=== PATIENT | female | born 1975 ===

== ENCOUNTER 2021-01-30 17:46 | Inpatient (IN) | payer MEDICARE, MEDICAID ==
[~2021-01-30] VITALS: Ht 162.6 cm; Wt 82.0 kg
[2021-01-30] MEDS ORDERED: SODIUM CHLORIDE 0.9% 500 ML IV ONE (18:00)
[2021-01-30] MEDS ORDERED: ADENOSINE 6 MG/2 ML INJ IV ONE (18:15)
[2021-01-30 18:25] LABS: Basophils % (auto) 0.4 % (0.0-2.0); Eosinophils # (auto) 0.1 10 ^3/uL (0-0.8); Mean Corpuscular Hgb Conc. 30.6 g/dL (32.0-36.0)
[2021-01-30 18:26] LABS: Basophils # (auto) 0 10 ^3/uL (0-0.2); Eosinophils % (auto) 0.9 % (0.0-7.0); Hematocrit 30.4 % (36.0-46.0); Hemoglobin 9.3 g/dL (12.2-16.2); Lymphocytes # (auto) 0.7 10 ^3/uL (0.4-5.4); Lymphocytes % (auto) 5.8 % (10.0-50.0); Mean Corpuscular Volume 81.7 fL (80.0-100.0); Monocytes % (auto) 7.9 % (0.0-12.0); Neutrophils # (auto) 10.7 10 ^3/uL (1.6-8.6); Red Blood Cells 3.72 10^6/uL (4.0-5.20); White Blood Cell 12.6 10^3/uL (4.4-10.8)
[2021-01-30 18:50] LABS: Albumin 1.8 g/dL (3.4-5.0); Calcium 8.7 mg/dL (8.5-10.1); Magnesium 1.9 mg/dL (1.6-2.6); Potassium 3.9 mmol/L (3.5-5.1)
[2021-01-30 18:58] LABS: BUN/Creatinine Ratio 19.7; Bilirubin, Total 0.5 mg/dL (0.2-1.0); Total Protein 7.2 g/dL (6.4-8.2)
[2021-01-31] MEDS ORDERED: ASPirin 81 mg TAB PO ONE (06:15)
[2021-01-31] MEDS ORDERED: NITROGLYCERIN 0.4 MG SL TAB SL PRN (09:00)
[2021-01-31] MEDS ORDERED: ACETAMINOPHEN 500 MG TAB PO PRN (09:00)
[2021-01-31] MEDS: cefTRIAXone 1GM/50ML D5W 50 ML IV SCH (09:00)
[2021-01-31] MEDS ORDERED: ONDANSETRON HCL 4 MG/2 ML VIAL IV PRN (09:00)
[2021-01-31] MEDS: BUDESONIDE (INHALATION) 0.5 MG/2 ML NEB NEB SCH ×2 (09:50→19:45)
[2021-01-31] MEDS: azaTHIOprine 50 MG TAB PO SCH (10:00)
[2021-01-31] MEDS: dilTIAZem 120MG ER CAP PO SCH (10:21)
[2021-01-31] MEDS: AZITHROMYCIN 500MG/ 250ML 250 ML IV SCH (10:21)
[2021-01-31] MEDS: IPRATROPIUM BROM 0.5 MG/2.5ML INH SOL NEB SCH ×2 (12:00→19:45)
[2021-01-31] MEDS: LEVALBUTEROL HCL 1.25 MG/3 ML NEB NEB SCH ×2 (12:00→19:45)
[2021-01-31 14:38] VITALS: BP 119/78
[2021-01-31 22:35] VITALS: BP 118/66
[2021-02-01] MEDS: guaiFENesin-CODEINE Liq 5 ML UD PO PRN ×2 (00:02→10:05)
[2021-02-01 05:00] VITALS: BP 104/53
[2021-02-01 06:37] LABS: Basophils # (auto) 0.1 10 ^3/uL (0-0.2); Basophils % (auto) 1.1 % (0.0-2.0); Eosinophils # (auto) 0.4 10 ^3/uL (0-0.8); Eosinophils % (auto) 5.8 % (0.0-7.0); Hematocrit 23.5 % (36.0-46.0); Hemoglobin 7.5 g/dL (12.2-16.2); Lymphocytes # (auto) 0.5 10 ^3/uL (0.4-5.4); Lymphocytes % (auto) 7.5 % (10.0-50.0); Mean Corpuscular Hemoglobin 25.5 pg (28.0-32.0); Mean Corpuscular Hgb Conc. 31.9 g/dL (32.0-36.0); Mean Corpuscular Volume 80.2 fL (80.0-100.0); Monocytes # (auto) 0.9 10 ^3/uL (0-1.3); Monocytes % (auto) 11.8 % (0.0-12.0); Neutrophils # (auto) 5.4 10 ^3/uL (1.6-8.6); Neutrophils % (auto) 73.8 % (37.0-80.0); Nucleated Red Blood Cells % 0.2 %; Red Blood Cells 2.94 10^6/uL (4.0-5.20); White Blood Cell 7.3 10^3/uL (4.4-10.8)
[2021-02-01 06:41] LABS: Calcium 8.3 mg/dL (8.5-10.1); Potassium 3.6 mmol/L (3.5-5.1)
[2021-02-01 06:49] LABS: Red Cell Distribution Width 20.2 % (11.8-14.3)
[2021-02-01 07:05] LABS: Urine Bacteria NONE SEEN /hpf (None Seen); Urine Blood Negative /uL (Negative); Urine Mucus FEW (None Seen); Urine Specific Gravity 1.023 (1.001-1.035); Urine WBC 20 /hpf (0 - 5)
[2021-02-01] MEDS ORDERED: PRED20TA2 PO (08:49)
[2021-02-01] MEDS ORDERED: GABA300C10 PO (08:49)
[2021-02-01] MEDS ORDERED: ALBUAER3 IN (08:49)
[2021-02-01] MEDS: LEVALBUTEROL HCL 1.25 MG/3 ML NEB NEB SCH ×3 (08:51→18:29)
[2021-02-01] MEDS: IPRATROPIUM BROM 0.5 MG/2.5ML INH SOL NEB SCH ×3 (08:51→18:28)
[2021-02-01] MEDS: BUDESONIDE (INHALATION) 0.5 MG/2 ML NEB NEB SCH ×2 (08:52→18:29)
[2021-02-01 09:00] VITALS: BP 116/68
[2021-02-01] MEDS: cefTRIAXone 1GM/50ML D5W 50 ML IV SCH (09:57)
[2021-02-01] MEDS: dilTIAZem 120MG ER CAP PO SCH (09:59)
[2021-02-01] MEDS: azaTHIOprine 50 MG TAB PO SCH (10:00)
[2021-02-01] MEDS: HYDROcodone-ACET 5/325MG TAB PO PRN (10:01)
[2021-02-01] MEDS: AZITHROMYCIN 500MG/ 250ML 250 ML IV SCH (10:30)
[2021-02-01 12:27] LABS: Hemoglobin 8.5 g/dL (12.2-16.2)
[2021-02-01 12:31] LABS: Hematocrit 26.9 % (36.0-46.0)
[2021-02-01 13:00] VITALS: BP 116/71
[2021-02-01] MEDS ORDERED: METOPROLOL TARTRATE 25 MG TAB PO ONE (13:00)
[2021-02-01] MEDS ORDERED: SODIUM CHLORIDE 0.9% 500 ML IV ONE (13:00)
[2021-02-01] MEDS ORDERED: MAGNESIUM SULFATE 1GM/100ML 100 ML IV ONE (13:00)
[2021-02-01] MEDS ORDERED: POTASSIUM CHL 20 Meq TABLET PO ONE (13:00)
[2021-02-01 13:57] LABS: Cholesterol 139 mg/dL (< 200); HDL Cholesterol 26 mg/dL (40-59); LDL Cholesterol 9 mg/dL (< 100); Triglycerides 75 mg/dL (< 150)
[2021-02-01 17:00] VITALS: BP 106/53
[2021-02-01] MEDS ORDERED: AZAT50TA6 PO (18:34)
[2021-02-01] MEDS ORDERED: METO25TA5 PO (18:34)
[2021-02-01] MEDS ORDERED: LISI-716 PO (18:34)
[2021-02-01] MEDS ORDERED: FER325T PO (18:34)
[2021-02-01 22:00] VITALS: BP 103/58
[2021-02-01] MEDS: METOPROLOL TARTRATE 25 MG TAB PO SCH (23:00)
[2021-02-02 05:00] VITALS: BP 106/65
[2021-02-02] MEDS: LEVALBUTEROL HCL 1.25 MG/3 ML NEB NEB SCH ×3 (07:31→19:21)
[2021-02-02] MEDS: BUDESONIDE (INHALATION) 0.5 MG/2 ML NEB NEB SCH ×2 (07:31→19:25)
[2021-02-02] MEDS: IPRATROPIUM BROM 0.5 MG/2.5ML INH SOL NEB SCH ×3 (07:32→19:21)
[2021-02-02 07:40] LABS: Basophils # (auto) 0.1 10 ^3/uL (0-0.2); Eosinophils # (auto) 0.5 10 ^3/uL (0-0.8); White Blood Cell 10.7 10^3/uL (4.4-10.8)
[2021-02-02 07:42] LABS: Basophils % (auto) 0.7 % (0.0-2.0); Eosinophils % (auto) 4.7 % (0.0-7.0); Hematocrit 25.7 % (36.0-46.0); Hemoglobin 8.1 g/dL (12.2-16.2); Lymphocytes # (auto) 0.9 10 ^3/uL (0.4-5.4); Lymphocytes % (auto) 8.7 % (10.0-50.0); Mean Corpuscular Hemoglobin 25.4 pg (28.0-32.0); Mean Corpuscular Hgb Conc. 31.7 g/dL (32.0-36.0); Mean Corpuscular Volume 80.2 fL (80.0-100.0); Monocytes # (auto) 1.2 10 ^3/uL (0-1.3); Monocytes % (auto) 11.1 % (0.0-12.0); Neutrophils % (auto) 74.8 % (37.0-80.0); Nucleated Red Blood Cells % 0.1 %
[2021-02-02 07:50] LABS: Red Cell Distribution Width 20.1 % (11.8-14.3)
[2021-02-02 07:57] LABS: Potassium 4.4 mmol/L (3.5-5.1)
[2021-02-02 07:58] LABS: BUN/Creatinine Ratio 11.7; Calcium 8.6 mg/dL (8.5-10.1)
[2021-02-02 08:46] VITALS: BP 126/76
[2021-02-02] MEDS: azaTHIOprine 50 MG TAB PO SCH (09:07)
[2021-02-02] MEDS: cefTRIAXone 1GM/50ML D5W 50 ML IV SCH (09:07)
[2021-02-02] MEDS: METOPROLOL TARTRATE 25 MG TAB PO SCH (09:08)
[2021-02-02] MEDS: HYDROcodone-ACET 5/325MG TAB PO PRN ×2 (09:11→20:30)
[2021-02-02] MEDS: AZITHROMYCIN 500MG/ 250ML 250 ML IV SCH (10:00)
[2021-02-02] MEDS ORDERED: PIPERACILLIN-TAZOB 3.375GM 100 ML IV ONE (11:15)
[2021-02-02] MEDS ORDERED: GABAPENTIN 300 MG CAP PO ONE (11:15)
[2021-02-02] MEDS: hydroxyUREA 500 MG CAP PO SCH (12:28)
[2021-02-02 12:46] VITALS: BP 107/74
[2021-02-02] MEDS ORDERED: DIGOXIN (250MCG/ML) 2 ML AMPULE IV ONE (15:15)
[2021-02-02 16:46] VITALS: BP 115/83
[2021-02-02] MEDS: PIPERACILLIN-TAZOB 3.375GM 100 ML IV SCH (18:23)
[2021-02-02] MEDS: GABAPENTIN 300 MG CAP PO SCH (21:47)
[2021-02-02 22:00] VITALS: BP 110/70
[2021-02-03 05:00] VITALS: BP 125/64
[2021-02-03] MEDS: GABAPENTIN 300 MG CAP PO SCH ×3 (05:45→21:59)
[2021-02-03] MEDS: PIPERACILLIN-TAZOB 3.375GM 100 ML IV SCH ×3 (05:45→21:59)
[2021-02-03] MEDS: LEVALBUTEROL HCL 1.25 MG/3 ML NEB NEB SCH ×3 (06:26→18:07)
[2021-02-03] MEDS: IPRATROPIUM BROM 0.5 MG/2.5ML INH SOL NEB SCH ×3 (06:27→18:07)
[2021-02-03] MEDS: BUDESONIDE (INHALATION) 0.5 MG/2 ML NEB NEB SCH ×2 (06:27→18:07)
[2021-02-03 06:48] LABS: BUN/Creatinine Ratio 11.3; Calcium 8.8 mg/dL (8.5-10.1); Potassium 3.9 mmol/L (3.5-5.1)
[2021-02-03 06:49] LABS: Basophils # (auto) 0.1 10 ^3/uL (0-0.2); Basophils % (auto) 0.9 % (0.0-2.0); Eosinophils # (auto) 0.5 10 ^3/uL (0-0.8); Eosinophils % (auto) 4.7 % (0.0-7.0); Hematocrit 25.8 % (36.0-46.0); Lymphocytes # (auto) 0.5 10 ^3/uL (0.4-5.4); Lymphocytes % (auto) 4.3 % (10.0-50.0); Mean Corpuscular Hemoglobin 24.7 pg (28.0-32.0); Mean Corpuscular Hgb Conc. 30.9 g/dL (32.0-36.0); Mean Corpuscular Volume 79.8 fL (80.0-100.0); Monocytes # (auto) 0.7 10 ^3/uL (0-1.3); Monocytes % (auto) 6.2 % (0.0-12.0); Neutrophils # (auto) 9.6 10 ^3/uL (1.6-8.6); Neutrophils % (auto) 83.9 % (37.0-80.0); Nucleated Red Blood Cells % 0.1 %; Red Blood Cells 3.24 10^6/uL (4.0-5.20); White Blood Cell 11.4 10^3/uL (4.4-10.8)
[2021-02-03 06:51] LABS: Red Cell Distribution Width 20.2 % (11.8-14.3)
[2021-02-03 06:52] LABS: % Iron Saturation 3.4 % (15-50)
[2021-02-03 07:17] LABS: Ferritin 207.8 ng/mL (10-322)
[2021-02-03 08:50] VITALS: BP 119/66
[2021-02-03 09:00] VITALS: BP 118/71
[2021-02-03] MEDS ORDERED: POTASSIUM CHL 20 Meq TABLET PO ONE (10:15)
[2021-02-03] MEDS ORDERED: FUROSEMIDE 20 MG/2 ML VIAL IV ONE (10:15)
[2021-02-03] MEDS: azaTHIOprine 50 MG TAB PO SCH (10:35)
[2021-02-03] MEDS: DIGOXIN 0.125 MG TAB PO SCH (10:36)
[2021-02-03] MEDS: hydroxyUREA 500 MG CAP PO SCH (10:36)
[2021-02-03 13:00] VITALS: BP 116/89
[2021-02-03 17:00] VITALS: BP 108/69
[2021-02-03 22:00] VITALS: BP 109/67
[2021-02-03] MEDS: HYDROcodone-ACET 5/325MG TAB PO PRN (22:19)
[2021-02-04 05:00] VITALS: BP 117/65
[2021-02-04] MEDS: GABAPENTIN 300 MG CAP PO SCH ×3 (06:17→22:36)
[2021-02-04] MEDS: PIPERACILLIN-TAZOB 3.375GM 100 ML IV SCH ×3 (06:17→22:36)
[2021-02-04] MEDS: BUDESONIDE (INHALATION) 0.5 MG/2 ML NEB NEB SCH ×2 (06:38→17:55)
[2021-02-04] MEDS: LEVALBUTEROL HCL 1.25 MG/3 ML NEB NEB SCH ×3 (06:38→17:54)
[2021-02-04] MEDS: IPRATROPIUM BROM 0.5 MG/2.5ML INH SOL NEB SCH ×3 (06:38→17:55)
[2021-02-04 07:09] LABS: Potassium 4.8 mmol/L (3.5-5.1)
[2021-02-04 07:16] LABS: BUN/Creatinine Ratio 9.9; Calcium 8.7 mg/dL (8.5-10.1)
[2021-02-04 07:22] LABS: Basophils # (auto) 0.1 10 ^3/uL (0-0.2)
[2021-02-04 07:25] LABS: Basophils % (auto) 0.5 % (0.0-2.0); Eosinophils # (auto) 0.7 10 ^3/uL (0-0.8); Eosinophils % (auto) 4.7 % (0.0-7.0); Hematocrit 25.4 % (36.0-46.0); Lymphocytes # (auto) 0.7 10 ^3/uL (0.4-5.4); Mean Corpuscular Hemoglobin 24.9 pg (28.0-32.0); Mean Corpuscular Hgb Conc. 31.5 g/dL (32.0-36.0); Mean Corpuscular Volume 78.9 fL (80.0-100.0); Monocytes # (auto) 1.2 10 ^3/uL (0-1.3); Monocytes % (auto) 8.6 % (0.0-12.0); Neutrophils # (auto) 11.3 10 ^3/uL (1.6-8.6); Neutrophils % (auto) 81.2 % (37.0-80.0); Red Blood Cells 3.22 10^6/uL (4.0-5.20); Red Cell Distribution Width 19.9 % (11.8-14.3); White Blood Cell 13.9 10^3/uL (4.4-10.8)
[2021-02-04 09:00] VITALS: BP 113/72
[2021-02-04] MEDS: azaTHIOprine 50 MG TAB PO SCH (09:48)
[2021-02-04] MEDS: hydroxyUREA 500 MG CAP PO SCH (09:48)
[2021-02-04] MEDS: DIGOXIN 0.125 MG TAB PO SCH (09:49)
[2021-02-04 13:00] VITALS: BP 121/74
[2021-02-04] MEDS: SODIUM FERR GLUC 62.5MG/5ML 125 MG in SODIUM CHL 0.9% 100 ML IV SCH (14:15)
[2021-02-04 16:46] VITALS: BP 106/51
[2021-02-04 22:00] VITALS: BP 87/51
[2021-02-04] MEDS ORDERED: IPRATROPIUM BROM 0.5 MG/2.5ML INH SOL NEB SCH (22:00)
[2021-02-05] VITALS (28 sets, daily range): BP systolic 96–132; BP diastolic 61–83
[2021-02-05 05:37] LABS: Basophils # (auto) 0.1 10 ^3/uL (0-0.2); Eosinophils # (auto) 0.1 10 ^3/uL (0-0.8); Neutrophils % (auto) 73.4 % (37.0-80.0)
[2021-02-05 05:40] LABS: Basophils % (auto) 0.8 % (0.0-2.0); Eosinophils % (auto) 1.4 % (0.0-7.0); Hematocrit 23.2 % (36.0-46.0); Hemoglobin 7.3 g/dL (12.2-16.2); Lymphocytes # (auto) 1.2 10 ^3/uL (0.4-5.4); Lymphocytes % (auto) 15.9 % (10.0-50.0); Mean Corpuscular Hgb Conc. 31.3 g/dL (32.0-36.0); Mean Corpuscular Volume 79.9 fL (80.0-100.0); Monocytes # (auto) 0.6 10 ^3/uL (0-1.3); Monocytes % (auto) 8.5 % (0.0-12.0); Neutrophils # (auto) 5.5 10 ^3/uL (1.6-8.6); Nucleated Red Blood Cells % 0.1 %; White Blood Cell 7.4 10^3/uL (4.4-10.8)
[2021-02-05 05:57] LABS: Potassium 4.3 mmol/L (3.5-5.1)
[2021-02-05] MEDS: BUDESONIDE (INHALATION) 0.5 MG/2 ML NEB NEB SCH ×2 (05:57→18:24)
[2021-02-05] MEDS: IPRATROPIUM BROM 0.5 MG/2.5ML INH SOL NEB SCH ×3 (05:58→18:24)
[2021-02-05] MEDS: LEVALBUTEROL HCL 1.25 MG/3 ML NEB NEB SCH ×3 (05:58→18:24)
[2021-02-05] MEDS: GABAPENTIN 300 MG CAP PO SCH ×3 (06:00→20:41)
[2021-02-05] MEDS: PIPERACILLIN-TAZOB 3.375GM 100 ML IV SCH ×3 (06:00→22:00)
[2021-02-05 06:02] LABS: INR 1.73 (0.9-1.15); Partial Thromboplastin Time 36.3 sec (23.6-33.0)
[2021-02-05 06:10] LABS: Albumin 1.5 g/dL (3.4-5.0); BUN/Creatinine Ratio 14.8; Bilirubin, Total 0.4 mg/dL (0.2-1.0); Calcium 8.2 mg/dL (8.5-10.1); Magnesium 2.3 mg/dL (1.6-2.6); Phosphorus 3.8 mg/dL (2.5-4.90); Total Protein 6.6 g/dL (6.4-8.2)
[2021-02-05] MEDS: azaTHIOprine 50 MG TAB PO SCH (10:00)
[2021-02-05] MEDS: DIGOXIN 0.125 MG TAB PO SCH (10:00)
[2021-02-05] MEDS: hydroxyUREA 500 MG CAP PO SCH (10:00)
[2021-02-05] MEDS ORDERED: POTASSIUM CHLORIDE 20 MEQ, LIDOCAINE 1% (LOCAL ANESTH.) 2 ML in SODIUM CHL 0.9% 100 ML IV ONE (11:15)
[2021-02-05] MEDS ORDERED: FUROSEMIDE 40 MG/4 ML VIAL IV ONE (11:15)
[2021-02-05] MEDS ORDERED: FLUCONAZOLE 200MG/100ML 100 ML IV ONE (11:15)
[2021-02-05] MEDS: ENOXAPARIN SOD 40 MG/0.4 ML SYRINGE SC SCH (11:22)
[2021-02-05] MEDS ORDERED: LORazepam 2MG/ML-1ML VIAL ONE ×2 (12:27→13:57)
[2021-02-05] MEDS ORDERED: methylPREDNISolone SOD SUCC 40 MG/ML VL ONE (12:34)
[2021-02-05] MEDS ORDERED: FUROSEMIDE 20 MG/2 ML VIAL ONE (12:34)
[2021-02-05] MEDS ORDERED: methylPREDNISolone SOD SUCC 40 MG/ML VL IV ONE ×2 (12:54→13:00)
[2021-02-05] MEDS ORDERED: FUROSEMIDE 20 MG/2 ML VIAL IV ONE ×2 (13:00→14:00)
[2021-02-05] MEDS ORDERED: LORazepam 2MG/ML-1ML VIAL IM ONE (14:00)
[2021-02-05] MEDS ORDERED: LORazepam 2MG/ML-1ML VIAL IV ONE (14:00)
[2021-02-05] MEDS ORDERED: POTASSIUM CHL 20MEQ/100ML 100 ML IV ONE (14:00)
[2021-02-05] MEDS ORDERED: MAGNESIUM SULFATE 1GM/100ML 100 ML IV ONE (15:45)
[2021-02-05] MEDS ORDERED: MORPHINE SULFATE INJECTION 2 MG/ML SYRG IV ONE (15:45)
[2021-02-05] MEDS: SODIUM FERR GLUC 62.5MG/5ML 125 MG in SODIUM CHL 0.9% 100 ML IV SCH (16:23)
[2021-02-05] MEDS ORDERED: DIGOXIN (250MCG/ML) 2 ML AMPULE IV ONE (16:30)
[2021-02-05] MEDS ORDERED: LIDOCAINE 1% (LOCAL ANESTH.) PF 5ml SDV ID ONE (17:00)
[2021-02-05] MEDS: FUROSEMIDE 40 MG/4 ML VIAL IV SCH (17:56)
[2021-02-05] MEDS: LINEZOLID 600MG/300ML 300 ML IV SCH (19:26)
[2021-02-05 19:41] LABS: BUN/Creatinine Ratio 14.9; Calcium 8.8 mg/dL (8.5-10.1); Potassium 4.7 mmol/L (3.5-5.1)
[2021-02-05] MEDS: SODIUM CHLOR 0.9% PF (SALINE LOCK) 10ML VIAL/SYR IV SCH (20:40)
[2021-02-05] MEDS: methylPREDNISolone SOD SUCC 40 MG/ML VL IV SCH (20:40)
[2021-02-05] MEDS: MORPHINE SULFATE INJECTION 2 MG/ML SYRG IV PRN (23:15)
[2021-02-06] VITALS (30 sets, daily range): BP systolic 101–126; BP diastolic 56–86
[2021-02-06] MEDS: MORPHINE SULFATE INJECTION 2 MG/ML SYRG IV PRN ×2 (05:30→21:41)
[2021-02-06] MEDS: LEVALBUTEROL HCL 1.25 MG/3 ML NEB NEB SCH ×3 (05:36→18:10)
[2021-02-06] MEDS: BUDESONIDE (INHALATION) 0.5 MG/2 ML NEB NEB SCH ×3 (05:36→22:00)
[2021-02-06] MEDS: IPRATROPIUM BROM 0.5 MG/2.5ML INH SOL NEB SCH ×3 (05:36→18:10)
[2021-02-06] MEDS: PIPERACILLIN-TAZOB 3.375GM 100 ML IV SCH ×3 (06:00→21:25)
[2021-02-06] MEDS: GABAPENTIN 300 MG CAP PO SCH (06:00)
[2021-02-06] MEDS: FUROSEMIDE 40 MG/4 ML VIAL IV SCH ×2 (06:00→18:30)
[2021-02-06] MEDS: LINEZOLID 600MG/300ML 300 ML IV SCH ×2 (06:16→18:30)
[2021-02-06 07:01] LABS: BUN/Creatinine Ratio 20.8; Calcium 8.7 mg/dL (8.5-10.1); Potassium 4.8 mmol/L (3.5-5.1)
[2021-02-06 07:05] LABS: Eosinophils # (auto) 0 10 ^3/uL (0-0.8); Hemoglobin 8.4 g/dL (12.2-16.2); Lymphocytes # (auto) 0.5 10 ^3/uL (0.4-5.4); Lymphocytes % (auto) 7.5 % (10.0-50.0); Monocytes # (auto) 0.2 10 ^3/uL (0-1.3); Neutrophils # (auto) 5.8 10 ^3/uL (1.6-8.6); White Blood Cell 6.5 10^3/uL (4.4-10.8)
[2021-02-06 07:08] LABS: Basophils # (auto) 0 10 ^3/uL (0-0.2); Basophils % (auto) 0.7 % (0.0-2.0); Hematocrit 25.9 % (36.0-46.0); Mean Corpuscular Hemoglobin 25.6 pg (28.0-32.0); Mean Corpuscular Hgb Conc. 32.4 g/dL (32.0-36.0); Mean Corpuscular Volume 78.8 fL (80.0-100.0); Monocytes % (auto) 2.5 % (0.0-12.0); Neutrophils % (auto) 89.3 % (37.0-80.0); Nucleated Red Blood Cells % 0.2 %; Red Blood Cells 3.29 10^6/uL (4.0-5.20); Red Cell Distribution Width 19.7 % (11.8-14.3)
[2021-02-06] MEDS: SODIUM CHLOR 0.9% PF (SALINE LOCK) 10ML VIAL/SYR IV SCH ×2 (10:00→21:24)
[2021-02-06] MEDS ORDERED: DIGOXIN (250MCG/ML) 2 ML AMPULE IV SCH (10:00)
[2021-02-06] MEDS: methylPREDNISolone SOD SUCC 40 MG/ML VL IV SCH ×2 (10:58→21:24)
[2021-02-06] MEDS: hydroxyUREA 500 MG CAP PO SCH (10:58)
[2021-02-06] MEDS: ENOXAPARIN SOD 40 MG/0.4 ML SYRINGE SC SCH (10:58)
[2021-02-06] MEDS: azaTHIOprine 50 MG TAB PO SCH (10:58)
[2021-02-06] MEDS: FLUCONAZOLE 200MG/100ML 100 ML IV SCH ×2 (10:59→12:10)
[2021-02-06] MEDS: SODIUM FERR GLUC 62.5MG/5ML 125 MG in SODIUM CHL 0.9% 100 ML IV SCH (12:46)
[2021-02-06] MEDS: guaiFENesin-CODEINE Liq 5 ML UD PO PRN (16:59)
[2021-02-07] VITALS (20 sets, daily range): BP systolic 116–132; BP diastolic 74–88
[2021-02-07] MEDS: MORPHINE SULFATE INJECTION 2 MG/ML SYRG IV PRN ×2 (03:25→17:58)
[2021-02-07] MEDS: FUROSEMIDE 40 MG/4 ML VIAL IV SCH (05:32)
[2021-02-07] MEDS: PIPERACILLIN-TAZOB 3.375GM 100 ML IV SCH ×3 (05:32→22:08)
[2021-02-07] MEDS: LINEZOLID 600MG/300ML 300 ML IV SCH (05:33)
[2021-02-07] MEDS: LEVALBUTEROL HCL 1.25 MG/3 ML NEB NEB SCH ×3 (05:54→20:02)
[2021-02-07] MEDS: IPRATROPIUM BROM 0.5 MG/2.5ML INH SOL NEB SCH ×3 (05:54→20:02)
[2021-02-07] MEDS: BUDESONIDE (INHALATION) 0.5 MG/2 ML NEB NEB SCH ×2 (05:54→20:02)
[2021-02-07 06:01] LABS: Basophils # (auto) 0 10 ^3/uL (0-0.2); Eosinophils # (auto) 0 10 ^3/uL (0-0.8); Lymphocytes # (auto) 0.3 10 ^3/uL (0.4-5.4); Monocytes # (auto) 0.2 10 ^3/uL (0-1.3); Neutrophils # (auto) 3.7 10 ^3/uL (1.6-8.6); White Blood Cell 4.3 10^3/uL (4.4-10.8)
[2021-02-07 06:03] LABS: Basophils % (auto) 0.9 % (0.0-2.0); Hematocrit 26.9 % (36.0-46.0); Hemoglobin 8.4 g/dL (12.2-16.2); Lymphocytes % (auto) 6.7 % (10.0-50.0); Mean Corpuscular Hemoglobin 25.3 pg (28.0-32.0); Mean Corpuscular Hgb Conc. 31.2 g/dL (32.0-36.0); Monocytes % (auto) 5.4 % (0.0-12.0); Nucleated Red Blood Cells % 0.4 %; Red Blood Cells 3.32 10^6/uL (4.0-5.20)
[2021-02-07 06:10] LABS: BUN/Creatinine Ratio 28.9; Calcium 8.5 mg/dL (8.5-10.1); Potassium 4.5 mmol/L (3.5-5.1)
[2021-02-07] MEDS: FLUCONAZOLE 200MG/100ML 100 ML IV SCH ×2 (10:08→12:59)
[2021-02-07] MEDS: methylPREDNISolone SOD SUCC 40 MG/ML VL IV SCH ×2 (10:08→22:08)
[2021-02-07] MEDS: ENOXAPARIN SOD 40 MG/0.4 ML SYRINGE SC SCH (10:08)
[2021-02-07] MEDS: SODIUM CHLOR 0.9% PF (SALINE LOCK) 10ML VIAL/SYR IV SCH ×2 (10:09→22:08)
[2021-02-07] MEDS: azaTHIOprine 50 MG TAB PO SCH (10:10)
[2021-02-07] MEDS: hydroxyUREA 500 MG CAP PO SCH (10:58)
[2021-02-07] MEDS: guaiFENesin-CODEINE Liq 5 ML UD PO PRN ×2 (13:10→18:52)
[2021-02-08] VITALS (9 sets, daily range): BP systolic 105–137; BP diastolic 67–87
[2021-02-08] MEDS: PIPERACILLIN-TAZOB 3.375GM 100 ML IV SCH (06:10)
[2021-02-08] MEDS: IPRATROPIUM BROM 0.5 MG/2.5ML INH SOL NEB SCH ×3 (07:35→19:28)
[2021-02-08] MEDS: LEVALBUTEROL HCL 1.25 MG/3 ML NEB NEB SCH ×3 (07:35→19:27)
[2021-02-08] MEDS: BUDESONIDE (INHALATION) 0.5 MG/2 ML NEB NEB SCH ×2 (07:35→19:27)
[2021-02-08] MEDS: azaTHIOprine 50 MG TAB PO SCH (11:13)
[2021-02-08] MEDS: FUROSEMIDE 40 MG/4 ML VIAL IV SCH (11:16)
[2021-02-08] MEDS: ENOXAPARIN SOD 40 MG/0.4 ML SYRINGE SC SCH (11:17)
[2021-02-08] MEDS: FLUCONAZOLE 200MG/100ML 100 ML IV SCH (11:18)
[2021-02-08] MEDS: hydroxyUREA 500 MG CAP PO SCH (11:20)
[2021-02-08] MEDS: POTASSIUM CHL 20 Meq TABLET PO SCH (11:20)
[2021-02-08] MEDS: SODIUM CHLOR 0.9% PF (SALINE LOCK) 10ML VIAL/SYR IV SCH ×2 (11:23→21:52)
[2021-02-08] MEDS: MORPHINE SULFATE INJECTION 2 MG/ML SYRG IV PRN ×2 (11:24→21:51)
[2021-02-08] MEDS: levoFLOXacin 500 MG TAB PO SCH (13:58)
[2021-02-08] MEDS: guaiFENesin-CODEINE Liq 5 ML UD PO PRN ×2 (15:15→19:41)
[2021-02-09 01:10] VITALS: BP 105/67
[2021-02-09 05:00] VITALS: BP 105/66
[2021-02-09 07:11] LABS: Basophils # (auto) 0 10 ^3/uL (0-0.2); Eosinophils # (auto) 0 10 ^3/uL (0-0.8); Hemoglobin 8.2 g/dL (12.2-16.2); Mean Corpuscular Volume 81.5 fL (80.0-100.0); Monocytes # (auto) 0.5 10 ^3/uL (0-1.3); Nucleated Red Blood Cells % 0.1 %; White Blood Cell 8.6 10^3/uL (4.4-10.8)
[2021-02-09 07:14] LABS: Basophils % (auto) 0.1 % (0.0-2.0); Hematocrit 25.8 % (36.0-46.0); Lymphocytes % (auto) 11.7 % (10.0-50.0); Mean Corpuscular Hemoglobin 25.8 pg (28.0-32.0); Mean Corpuscular Hgb Conc. 31.7 g/dL (32.0-36.0); Monocytes % (auto) 6.2 % (0.0-12.0); Red Blood Cells 3.17 10^6/uL (4.0-5.20); Red Cell Distribution Width 19.8 % (11.8-14.3)
[2021-02-09 07:26] LABS: Albumin 1.8 g/dL (3.4-5.0); Calcium 8.5 mg/dL (8.5-10.1); Potassium 3.5 mmol/L (3.5-5.1)
[2021-02-09 07:32] LABS: BUN/Creatinine Ratio 35.9; Bilirubin, Total 0.2 mg/dL (0.2-1.0); Total Protein 5.9 g/dL (6.4-8.2)
[2021-02-09 09:00] VITALS: BP 107/64
[2021-02-09] MEDS: FUROSEMIDE 40 MG/4 ML VIAL IV SCH (09:44)
[2021-02-09] MEDS: ENOXAPARIN SOD 40 MG/0.4 ML SYRINGE SC SCH (09:44)
[2021-02-09] MEDS: hydroxyUREA 500 MG CAP PO SCH (09:44)
[2021-02-09] MEDS: guaiFENesin-CODEINE Liq 5 ML UD PO PRN ×3 (09:44→20:20)
[2021-02-09] MEDS: azaTHIOprine 50 MG TAB PO SCH (09:45)
[2021-02-09] MEDS: levoFLOXacin 500 MG TAB PO SCH (09:45)
[2021-02-09] MEDS: POTASSIUM CHL 20 Meq TABLET PO SCH (09:45)
[2021-02-09] MEDS: SODIUM CHLOR 0.9% PF (SALINE LOCK) 10ML VIAL/SYR IV SCH ×2 (09:53→21:48)
[2021-02-09] MEDS ORDERED: methylPREDNISolone SOD SUCC 40 MG/ML VL IV SCH (10:00)
[2021-02-09] MEDS: MORPHINE SULFATE INJECTION 2 MG/ML SYRG IV PRN ×2 (10:01→20:20)
[2021-02-09 13:00] VITALS: BP 104/68
[2021-02-09] MEDS: LEVALBUTEROL HCL 1.25 MG/3 ML NEB NEB SCH ×3 (13:14→18:49)
[2021-02-09] MEDS: IPRATROPIUM BROM 0.5 MG/2.5ML INH SOL NEB SCH ×2 (13:15→18:49)
[2021-02-09] MEDS: BUDESONIDE (INHALATION) 0.5 MG/2 ML NEB NEB SCH ×2 (13:15→18:49)
[2021-02-09 16:38] VITALS: BP 139/85
[2021-02-10 05:00] VITALS: BP 100/50
[2021-02-10 05:10] LABS: Eosinophils # (auto) 0 10 ^3/uL (0-0.8); Hemoglobin 8.3 g/dL (12.2-16.2); Lymphocytes # (auto) 0.5 10 ^3/uL (0.4-5.4); Mean Corpuscular Hemoglobin 25.5 pg (28.0-32.0); Monocytes # (auto) 0.5 10 ^3/uL (0-1.3); Neutrophils # (auto) 7.6 10 ^3/uL (1.6-8.6)
[2021-02-10 05:11] LABS: Basophils # (auto) 0.1 10 ^3/uL (0-0.2); Basophils % (auto) 0.7 % (0.0-2.0); Hematocrit 26.4 % (36.0-46.0); Lymphocytes % (auto) 6.2 % (10.0-50.0); Mean Corpuscular Hgb Conc. 31.5 g/dL (32.0-36.0); Mean Corpuscular Volume 80.7 fL (80.0-100.0); Monocytes % (auto) 5.4 % (0.0-12.0); Neutrophils % (auto) 87.7 % (37.0-80.0); Nucleated Red Blood Cells % 0.1 %; Red Blood Cells 3.27 10^6/uL (4.0-5.20); White Blood Cell 8.6 10^3/uL (4.4-10.8)
[2021-02-10 05:48] LABS: Potassium 3.9 mmol/L (3.5-5.1)
[2021-02-10 05:53] LABS: BUN/Creatinine Ratio 33.3; Calcium 8.8 mg/dL (8.5-10.1)
[2021-02-10] MEDS: LEVALBUTEROL HCL 1.25 MG/3 ML NEB NEB SCH ×3 (07:08→19:36)
[2021-02-10] MEDS: IPRATROPIUM BROM 0.5 MG/2.5ML INH SOL NEB SCH ×3 (07:08→19:36)
[2021-02-10] MEDS: BUDESONIDE (INHALATION) 0.5 MG/2 ML NEB NEB SCH ×2 (07:15→19:36)
[2021-02-10 09:00] VITALS: BP 111/70
[2021-02-10] MEDS: azaTHIOprine 50 MG TAB PO SCH (09:58)
[2021-02-10] MEDS: predniSONE 20 MG TAB PO SCH (09:58)
[2021-02-10] MEDS: hydroxyUREA 500 MG CAP PO SCH (09:58)
[2021-02-10] MEDS: FUROSEMIDE 40 MG/4 ML VIAL IV SCH (09:58)
[2021-02-10] MEDS: SODIUM CHLOR 0.9% PF (SALINE LOCK) 10ML VIAL/SYR IV SCH ×2 (09:58→22:08)
[2021-02-10] MEDS: POTASSIUM CHL 20 Meq TABLET PO SCH (09:59)
[2021-02-10] MEDS: ENOXAPARIN SOD 40 MG/0.4 ML SYRINGE SC SCH (09:59)
[2021-02-10] MEDS: levoFLOXacin 500 MG TAB PO SCH (09:59)
[2021-02-10] MEDS: HYDROcodone-ACET 5/325MG TAB PO PRN ×2 (09:59→21:12)
[2021-02-10 13:00] VITALS: BP 110/73
[2021-02-10 17:00] VITALS: BP 117/72
[2021-02-10 22:00] VITALS: BP 118/79
[2021-02-11 05:00] VITALS: BP 127/75
[2021-02-11 06:07] LABS: Basophils # (auto) 0 10 ^3/uL (0-0.2); Eosinophils # (auto) 0.1 10 ^3/uL (0-0.8); Lymphocytes # (auto) 1.4 10 ^3/uL (0.4-5.4)
[2021-02-11] MEDS: LEVALBUTEROL HCL 1.25 MG/3 ML NEB NEB SCH ×3 (06:09→18:22)
[2021-02-11] MEDS: IPRATROPIUM BROM 0.5 MG/2.5ML INH SOL NEB SCH ×3 (06:09→18:22)
[2021-02-11] MEDS: BUDESONIDE (INHALATION) 0.5 MG/2 ML NEB NEB SCH ×2 (06:09→18:22)
[2021-02-11 06:10] LABS: Basophils % (auto) 0.1 % (0.0-2.0); Eosinophils % (auto) 0.9 % (0.0-7.0); Hematocrit 28.9 % (36.0-46.0); Mean Corpuscular Hemoglobin 25.2 pg (28.0-32.0); Mean Corpuscular Volume 81.2 fL (80.0-100.0); Monocytes # (auto) 0.4 10 ^3/uL (0-1.3); Monocytes % (auto) 5.6 % (0.0-12.0); Neutrophils # (auto) 5.7 10 ^3/uL (1.6-8.6); Neutrophils % (auto) 75.4 % (37.0-80.0); Nucleated Red Blood Cells % 0.2 %; Red Blood Cells 3.56 10^6/uL (4.0-5.20); White Blood Cell 7.6 10^3/uL (4.4-10.8)
[2021-02-11 06:22] LABS: Red Cell Distribution Width 20.7 % (11.8-14.3)
[2021-02-11 08:40] VITALS: BP 130/75
[2021-02-11] MEDS: guaiFENesin-CODEINE Liq 5 ML UD PO PRN ×2 (09:05→17:27)
[2021-02-11] MEDS: FUROSEMIDE 40 MG/4 ML VIAL IV SCH (09:05)
[2021-02-11] MEDS: levoFLOXacin 500 MG TAB PO SCH (09:06)
[2021-02-11] MEDS: predniSONE 20 MG TAB PO SCH (09:06)
[2021-02-11] MEDS: POTASSIUM CHL 20 Meq TABLET PO SCH (09:07)
[2021-02-11] MEDS: SODIUM CHLOR 0.9% PF (SALINE LOCK) 10ML VIAL/SYR IV SCH ×2 (09:07→22:14)
[2021-02-11] MEDS: HYDROcodone-ACET 5/325MG TAB PO PRN ×2 (09:07→17:27)
[2021-02-11] MEDS: hydroxyUREA 500 MG CAP PO SCH (09:07)
[2021-02-11] MEDS: azaTHIOprine 50 MG TAB PO SCH (09:08)
[2021-02-11] MEDS ORDERED: ENOXAPARIN SOD 40 MG/0.4 ML SYRINGE SC SCH (10:00)
[2021-02-11] MEDS ORDERED: ASPirin 81 mg TAB PO SCH (10:00)
[2021-02-11 12:27] LABS: Basophils # (auto) 0 10 ^3/uL (0-0.2); Basophils % (auto) 0.1 % (0.0-2.0); Eosinophils # (auto) 0.1 10 ^3/uL (0-0.8); Hemoglobin 9.3 g/dL (12.2-16.2); Lymphocytes # (auto) 0.7 10 ^3/uL (0.4-5.4); Monocytes # (auto) 0.3 10 ^3/uL (0-1.3); Neutrophils # (auto) 5.8 10 ^3/uL (1.6-8.6); Nucleated Red Blood Cells % 0.1 %; White Blood Cell 6.9 10^3/uL (4.4-10.8)
[2021-02-11 12:29] LABS: Eosinophils % (auto) 1.8 % (0.0-7.0); Hematocrit 29.5 % (36.0-46.0); Lymphocytes % (auto) 10.2 % (10.0-50.0); Mean Corpuscular Hemoglobin 25.8 pg (28.0-32.0); Mean Corpuscular Hgb Conc. 31.7 g/dL (32.0-36.0); Mean Corpuscular Volume 81.5 fL (80.0-100.0); Monocytes % (auto) 4.7 % (0.0-12.0); Neutrophils % (auto) 83.2 % (37.0-80.0); Red Blood Cells 3.61 10^6/uL (4.0-5.20)
[2021-02-11 12:36] LABS: Red Cell Distribution Width 20.9 % (11.8-14.3)
[2021-02-11 12:58] VITALS: BP 113/73
[2021-02-11 17:00] VITALS: BP 113/74
[2021-02-11 22:00] VITALS: BP 126/82
[2021-02-11] MEDS: ENOXAPARIN SOD 40 MG/0.4 ML SYRINGE SC SCH (22:14)
[2021-02-12 03:38] VITALS: BP 126/82
[2021-02-12 05:00] VITALS: BP 98/50
[2021-02-12] MEDS: BUDESONIDE (INHALATION) 0.5 MG/2 ML NEB NEB SCH ×2 (06:37→19:22)
[2021-02-12] MEDS: LEVALBUTEROL HCL 1.25 MG/3 ML NEB NEB SCH ×3 (06:37→19:22)
[2021-02-12] MEDS: IPRATROPIUM BROM 0.5 MG/2.5ML INH SOL NEB SCH ×4 (06:37→19:23)
[2021-02-12 09:00] VITALS: BP 111/69
[2021-02-12] MEDS: SODIUM CHLOR 0.9% PF (SALINE LOCK) 10ML VIAL/SYR IV SCH ×2 (09:20→21:08)
[2021-02-12] MEDS: predniSONE 20 MG TAB PO SCH (09:20)
[2021-02-12] MEDS: FUROSEMIDE 40 MG/4 ML VIAL IV SCH (09:20)
[2021-02-12] MEDS: hydroxyUREA 500 MG CAP PO SCH ×3 (09:20→21:08)
[2021-02-12] MEDS: ASPirin 81 mg TAB PO SCH (09:20)
[2021-02-12] MEDS: levoFLOXacin 500 MG TAB PO SCH (09:21)
[2021-02-12] MEDS: ENOXAPARIN SOD 40 MG/0.4 ML SYRINGE SC SCH ×2 (09:21→21:09)
[2021-02-12] MEDS: POTASSIUM CHL 20 Meq TABLET PO SCH (09:21)
[2021-02-12] MEDS: azaTHIOprine 50 MG TAB PO SCH (09:21)
[2021-02-12] MEDS: HYDROcodone-ACET 5/325MG TAB PO PRN (09:22)
[2021-02-12] MEDS: guaiFENesin-CODEINE Liq 5 ML UD PO PRN ×2 (09:22→13:24)
[2021-02-12 13:00] VITALS: BP 122/70
[2021-02-12 17:00] VITALS: BP 150/95
[2021-02-12 22:00] VITALS: BP 118/72
[2021-02-13 05:00] VITALS: BP 122/70
[2021-02-13] MEDS: MORPHINE SULFATE INJECTION 2 MG/ML SYRG IV PRN (05:10)
[2021-02-13] MEDS: hydroxyUREA 500 MG CAP PO SCH ×2 (06:10→15:09)
[2021-02-13 06:26] LABS: Potassium 3.9 mmol/L (3.5-5.1)
[2021-02-13 06:32] LABS: BUN/Creatinine Ratio 35.4; Calcium 8.5 mg/dL (8.5-10.1)
[2021-02-13] MEDS: IPRATROPIUM BROM 0.5 MG/2.5ML INH SOL NEB SCH ×3 (06:35→18:34)
[2021-02-13] MEDS: LEVALBUTEROL HCL 1.25 MG/3 ML NEB NEB SCH ×3 (06:36→18:34)
[2021-02-13] MEDS: BUDESONIDE (INHALATION) 0.5 MG/2 ML NEB NEB SCH ×2 (06:36→18:34)
[2021-02-13] MEDS: FUROSEMIDE 40 MG/4 ML VIAL IV SCH (09:04)
[2021-02-13] MEDS: SODIUM CHLOR 0.9% PF (SALINE LOCK) 10ML VIAL/SYR IV SCH (09:05)
[2021-02-13] MEDS: levoFLOXacin 500 MG TAB PO SCH (09:05)
[2021-02-13] MEDS: ENOXAPARIN SOD 40 MG/0.4 ML SYRINGE SC SCH (09:05)
[2021-02-13] MEDS: ASPirin 81 mg TAB PO SCH (09:05)
[2021-02-13] MEDS: POTASSIUM CHL 20 Meq TABLET PO SCH (09:05)
[2021-02-13 09:15] VITALS: BP 116/73
[2021-02-13] MEDS: azaTHIOprine 50 MG TAB PO SCH (10:00)
[2021-02-13] MEDS ORDERED: predniSONE 20 MG TAB PO SCH (10:00)
[2021-02-13 13:00] VITALS: BP 115/70
[2021-02-13 17:00] VITALS: BP 103/68
[2021-02-13 17:27] VITALS: BP 103/68
== END 2021-02-13 21:00 | disposition home or self-care (01) | DRG 871 ==
LOC: ER 17:46 → EDBD 17:46 → TELE 01-31 08:58 → TELE-CENTR 01-31 22:24 → DOU IN ICU 02-05 11:36 → TELE-WESTW 02-08 05:02
PROVIDERS: ADMIT Nurse Practitioner Acute Care; ATTEND Internal Medicine
PROC: 5A09457 Assistance with Respiratory Ventilation, 24-96 Consecutive Hours, Continuous Positive Airway Pressure (ICD-10-PCS; principal; 2021-02-04)
PROC: 02HV33Z Insertion of Infusion Device into Superior Vena Cava, Percutaneous Approach (ICD-10-PCS; 2021-02-05)
DX: A41.9 Sepsis, unspecified organism (principal); J18.9 Pneumonia, unspecified organism; J96.21 Acute and chronic respiratory failure with hypoxia; I50.31 Acute diastolic (congestive) heart failure; E43 Unspecified severe protein-calorie malnutrition; I21.A1 Myocardial infarction type 2; I47.1 Supraventricular tachycardia; J44.0 Chronic obstructive pulmonary disease with (acute) lower respiratory infection; D75.839 Thrombocytosis, unspecified; E66.9 Obesity, unspecified; E78.5 Hyperlipidemia, unspecified; F17.210 Nicotine dependence, cigarettes, uncomplicated; F29 Unspecified psychosis not due to a substance or known physiological condition; G62.9 Polyneuropathy, unspecified; I11.0 Hypertensive heart disease with heart failure; D47.3 Essential (hemorrhagic) thrombocythemia; J84.10 Pulmonary fibrosis, unspecified; D50.9 Iron deficiency anemia, unspecified; Z79.52 Long term (current) use of systemic steroids; Z79.899 Other long term (current) drug therapy; Z83.3 Family history of diabetes mellitus; Z68.32 Body mass index [BMI] 32.0-32.9, adult; Z90.49 Acquired absence of other specified parts of digestive tract; Z71.6 Tobacco abuse counseling
CPT/HCPCS: 36415; 36569; 36600; 71045; 71250; 80048; 80053; 80061; 81001; 82607; 82728; 82805; 83010; 83036; 83540; 83550; 83615; 83735; 83880; 84100; 84443; 84484; 84702; 85014; 85018; 85025; 85045; 85379; 85610; 85730; 86880; 87040; 87070; 87081; 87205; 87426; 87804; 93005; 93306; 93970; 94640; 94660; 96361; 96374; 97110; 97116; 97163; 97530; G0378; J0153; J0696; J1450; J2001; J2543; J3480